=== PATIENT | female | born 1935 | race Caucasian/White ===

== ENCOUNTER 2017-03-05 17:00 | Inpatient (IN) | payer OTHER ==
[~2017-03-05] VITALS: Ht 175.3 cm; Wt 65.8 kg
--- NOTE | ~2017-03-05 | DS ---
Discharge Summary [facility] [address] [place]. [address] NAME: CESAR WHALEN : 31 STATUS : DIS IN PAT#: [id number] AGE: 81 ADM/REG DATE : 03/05/17 MR#: [id number] REPORT SERV DATE: 03/11/17 DICTATED BY: TANNER GUERRA DATE: 03/10/17 REPORT STATUS : Draft TRANSCRIBED BY: MODL DATE: 03/10/17 ADMISSION DATE: 03/05/2017 DISCHARGE DATE: 03/10/2017 DISCHARGE DIAGNOSES: Include, 1. Acute pulmonary embolus. 2. Hypothyroidism, most recent TSH 27.600. 3. Type 2 myocardial infarction with troponin elevations. 4. Hypertension. 5. Acute kidney injury, resolved. 6. History of dementia and cerebrovascular accident. 7. Multiple scrapes, bruises on the left side, present on admission from a fall prior to admission. 8. Recent subdural hematoma secondary to that fall as well. DISCHARGE MEDICATIONS: As follows. Synthroid 125 mcg daily; Tylenol 650 mg every four hours p.r.n.; Xarelto 15 mg twice a day for 21 days, then 20 mg daily for a total of three months; then start aspirin 81 mg daily afterwards and then Lipitor 20 mg at hour of sleep. HISTORY OF PRESENT ILLNESS: An 81-year-old female who presented to [facility] with complaints of shortness of breath and hypoxia. Please see initial H and P of Dr. Peterson Garsia, as the patient is admitted to the Hospitalist Service for further evaluation and treatment. She was started on anticoagulation therapy. Lab work was followed closely. PROCEDURES AND IMAGING DURING THIS ADMISSION: Included, initial CT scan of the brain showing no acute intracranial hemorrhage or other acute intracranial pathology, moderate advanced diffuse cerebral involutional changes, deep white matter chronic microvascular ischemic changes, and old superior right basal ganglia infarct seen extending at the barrett radiata and a very subtle right pontine old lacunar infarct. CTA of the chest showing obstructive pulmonary emboli in the right main descending pulmonary artery, lobar and segmental sized pulmonary arteries, and nonobstructing smaller pulmonary emboli bilateral upper lobes and left pulmonary lobe, atelectasis left lung base, and 50% insufficiency fracture T12 vertebrae. An echocardiogram showing an ejection fraction of 50% to 55%, mild concentric LVH and mild diastolic dysfunction, mild left atrial enlargement. HOSPITAL COURSE: The patient was initially been started on anticoagulation with a heparin drip and required oxygen therapy. This was able to be weaned down slowly, and eventually, the patient was able to come off the oxygen. Discussions with the patient's family on numerous occasions of taking a more palliative approach with overall care were had, and Dr. Bender, [facility], was consulted and did meet with the family and helped in assistance with DNR at this hospitalization and beyond and also the possibility of consulting hospice in the future to decrease the chance of rehospitalizations. The patient was transitioned from heparin drip to Lovenox subcu. Her IV fluids were weaned down. She Discharge Summary [facility] [id number] [facility] [place]. [address] NAME: CESAR WHALEN : 31 STATUS : DIS IN PAT#: [id number] AGE: 81 ADM/REG DATE : 03/05/17 MR#: [id number] REPORT SERV DATE: 03/11/17 DICTATED BY: TANNER GUERRA DATE: 03/10/17 REPORT STATUS : Draft TRANSCRIBED BY: GWENDOLYN DATE: 03/10/17 had a bedside swallow evaluation that did not show any signs of aspiration. The patient was able to eat and drink well. Her TSH on check did come back significantly elevated at 27.600, so her Synthroid dosage has been increased, and she will need to have her TSH rechecked in approximately four to six weeks. For an anticoagulation, she was transitioned to Xarelto and will begin that for the next three months. It was determined that she would return to [facility] for rehab and likely transitioned to long-term care with consideration for consulting hospice in the future. The patient to also continue a C-collar when out of bed and more than 30 degrees for the next 8 to 10 weeks as well. The patient and family were in agreement with this plan going forward. Questions were answered at bedside. Please note greater than 30 minutes was spent on this discharge for family meetings, medication teaching, and further disposition. Collaborative physician is Dr. Tanner Guerra. NESTOR/ASHTYNL Sean Morel, SQL DATABASE PROGRAMMER Tanner Guerra MD / [id number] CC: MD Lonny Hidalgo M.D.
--- NOTE | ~2017-03-05 | HP ---
History And Physical [facility] [address] [place]. [address] NAME: CESAR WHALEN : 31 STATUS : ADM IN [facility]#: [id number] AGE: 81 ADM/REG DATE : 03/05/17 MR#: [id number] REPORT SERV DATE: 03/06/17 DICTATED BY: PETERSON MENDOSA DATE: 03/06/17 REPORT STATUS : Draft TRANSCRIBED BY: MODL DATE: 03/06/17 DATE OF ADMISSION: 03/05/2017 CHIEF COMPLAINT/HISTORY OF PRESENT ILLNESS: This is an 81-year-old female who has a history of recent subdural hematoma secondary to a fall, which occurred on 02/28/2017, history of DVT in November 2014, hypothyroidism, and dementia, who presents to the emergency room at [facility] with the above-mentioned complaint. History is obtained from the patient and reviewing data available on the [employer] system. According to available data, Ms Whalen had a fall on , 02/28/2017, and sustained a subdural hematoma, a cervical fracture, and was then taken to another local hospital, where she was treated as an inpatient and then discharged to [facility] for rehabilitation. Today, she started having shortness of breath and oxygen saturations were low, so the patient was sent to the emergency room here at [facility] for evaluation. In the emergency room, a CTA of her chest showed bilateral pulmonary embolism and a CT of the brain did not show any evidence of the subdural hematoma she had a few days ago. Hospitalist Service is asked to admit her for further evaluation and treatment. At the time of my evaluation, she denied any chest pain or palpitations. She had no orthopnea. She had no cough, hemoptysis, night sweats, or weight loss. She denied any fevers, chills. She did not have any nausea, vomiting, diarrhea. No history of recent hematemesis, hematochezia, or hematuria. No other history of recent travel or exposures other than those mentioned above. 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 She also has history of dementia. SOCIAL HISTORY: She does not smoke, drink, or use recreational drugs. FAMILY HISTORY: Noncontributory. MEDICATIONS: At home were reviewed by me in the chart today and reordered by me. REVIEW OF SYSTEMS: As in history of present illness. All other systems were reviewed in detail and are quite unremarkable. PHYSICAL EXAMINATION: GENERAL: This is a pleasant 81-year-old, not in any acute distress. HEENT: Her head is atraumatic, normocephalic. She is alert, awake, oriented to time, place, and person. Her pupils are equal, reacting to light and accommodating. External ocular muscles are intact. Membranes are moist and pink. Sclerae are nonicteric. NECK: Supple with no jugular venous distention, lymphadenopathy, or thyromegaly. History And Physical [address] [address] NAME: CESAR WHALEN : 31 STATUS : ADM IN [facility]#: [id number] AGE: 81 ADM/REG DATE : 03/05/17 MR#: [id number] REPORT SERV DATE: 03/06/17 DICTATED BY: PETERSON MENDOSA DATE: 03/06/17 REPORT STATUS : Draft TRANSCRIBED BY: GWENDOLYN DATE: 03/06/17 LUNGS: Clear to auscultation with no wheezes, rubs, or crackles. HEART: Heart sounds were regular with no murmurs, rubs, or gallops. ABDOMEN: Soft and nontender. Bowel sounds are present. EXTREMITIES: Showed no cyanosis, clubbing, or edema. NEURO: Grossly intact. No focal sensory or motor deficits. Higher functions appeared intact. Her neck is in a neck brace after her recent fracture. VITAL SIGNS: Her vital signs today showed a temperature of 97.9, pulse 86, and respirations of 16 a minute. Blood pressure was 117/63 upon arrival. Her oxygen saturations were 89% breathing 2 L of oxygen via nasal cannula when she first arrived. LABORATORY DATA: Reviewed on the [employer] system showed a pH of 7.41, pCO2 was 34, PaO2 of 57, and bicarb was 21.4. Her CMP showed a sodium of 140, potassium 4.1, chloride 106, and CO2 of 27, BUN was 28 with a creatinine of 1.12, which is up from her baseline and blood glucose was 133. Her alkaline phosphatase was 156. ALT/AST were 64 and 94 respectively. Troponin was elevated at 2.14 today. CBC revealed an elevated white blood cell count of 19,400, normal hemoglobin, hematocrit, and platelet count. Urinalysis was grossly unremarkable today. IMAGING DATA: Films of the CTA of her chest and CT scan of the brain were reviewed by me on the PACS today and interpreted by me. The CTA of the chest showed obstructing pulmonary emboli in the right main descending pulmonary artery, lobar and segmental sites pulmonary arteries, and nonobstructing smaller pulmonary emboli bilateral upper lobes and left lower lobe. Please see the Radiology report for details. Films of the CT scan of her brain did not show any acute intracranial pathology. The previously seen subdural hematoma has apparently resolved. Films of the chest x-ray did not reveal any acute lobar consolidations or effusions. The lung berry were emphysematous. IMPRESSION: 1. Shortness of breath. 2. Acute bilateral pulmonary emboli. 3. Recent subdural hematoma secondary to a fall on 02/28/2017. 4. History of deep venous thrombosis. 5. Hypothyroidism. 6. Dementia. PLAN: We will admit Ms Whalen to the Hospitalist Service with cardiac telemetry for close monitoring. There was a discussion about whether we can start anticoagulation in a patient who has had a recent subdural hematoma. In reviewing literature online, we found that it was okay to go ahead and start anticoagulation with intravenous heparin, especially with massive clot burden and risk. We, however, called the Neurosurgery Service at [place] and asked for their advice. We were advised to go ahead and start her on a heparin infusion right away. It is also encouraging to note that her previously-seen subdural hematoma has probably resolved. We will go ahead and start her on heparin and follow pulmonary embolism/DVT protocol. We will also obtain cultures and start her on IV antibiotics at this time and place her on bronchodilator treatments and supplemental oxygen therapy. Her elevated troponin may be secondary to her acute pulmonary embolism. We will, however, follow her cardiac enzymes as well. We will also check her TSH and continue thyroid History And Physical [address] [address] NAME: CESAR WHALEN : 31 STATUS : ADM IN [facility]#: [id number] AGE: 81 ADM/REG DATE : 03/05/17 MR#: [id number] REPORT SERV DATE: 03/06/17 DICTATED BY: PETERSON MENDOSA DATE: 03/06/17 REPORT STATUS : Draft TRANSCRIBED BY: GWENDOLYN DATE: 03/06/17 replacement therapy. We will continue all other home medications and treatments at this time as well. I have discussed this extensively with the patient's family who were at bedside, questions were answered, and they are agreeable to the above recommendations. I also addressed her code situation with the patient's family, and according to the patient's family including her sister, she had been a DNR. I will go ahead and sign her DNR form and place it in the chart. Hospitalist Service will be following her during her stay here. /GWENDOLYN Peterson [place]osa M.D. / [id number] CC: Charissa Suggs M.D.
[~2017-03-05 17:00] MED LIST: ADVIL PO; ALEVE220 MG PO; AZO-TABS95 MG PO; METHOC750B PO; NORCO1 TA1 PO; SYN125 PO
[2017-03-05 18:03] LABS: BE (BASE EXCESS) -2.4 MEQ/L (0 +/- 2.5); CARBOXYHEMOGLOBIN 1.4 % (0-3); DEVICE NC; HCO3 (ACTUAL BICARBONATE) 21.4 MEQ/L (23-27); HEMOBLOGIN CONTENT 14.9 G/DL (12-16); INSTRUMENT SERIAL # 8087; METHEMOGLOBIN 0.3 % (0-3); O2 CONTENT 18.3 VOL% (18-24); PCO2 (CO2 TENSION) 34 MMHG (35-45); PO2 (O2 TENSION) 57 MMHG (79-93); SAMPLE Arterial; pH 7.41 (7.37-7.43)
[2017-03-05 20:03] LABS: BASOPHILS 0.1 %; BASOPHILS ABSOLUTE 0.02 10/3/uL (0.0-0.16); EOSINOPHILS 0.1 %; EOSINOPHILS ABSOLUTE 0.01 10/3/uL (0.0-0.53); ER CBC TAT 0 Hrs 05 Mins; HEMATOCRIT 45.7 % (36.0-48.0); HEMOGLOBIN 14.8 g/dL (12.0-16.0); IMMATURE GRANULOCYTES 2.5 %; IMMATURE GRANULOCYTES ABSOLUTE 0.49 10/3/uL (0.0-0.11); LYMPHOCYTES 6.3 %; LYMPHOCYTES ABSOLUTE 1.22 10/3/uL (0.67-4.30); MANUAL DIFF NO %; MEAN CORPUS HGB CONC 32.4 g/dL (32.0-36.0); MEAN CORPUSCULAR HEMOGLOB 27.8 pg (26.0-34.0); MEAN CORPUSCULAR VOLUME 85.7 fL (80-100); MEAN PLATELET VOLUME 9.8 fL (9.2-13.0); MONOCYTES 3.8 %; MONOCYTES ABSOLUTE 0.73 10/3/uL (0.21-1.20); NEUTROPHILS 87.2 %; NEUTROPHILS ABSOLUTE 16.96 10/3/uL (2.02-8.40); PLATELET COUNT 154 10/3/uL (150-400); RBC DISTRIBUTION WIDTH 14.7 % (12.0-16.0); RED CELL COUNT 5.33 10/6/uL (4.0-5.6); WHITE BLOOD CELLS 19.4 10/3/uL (4.5-10.5)
[2017-03-05 20:22] LABS: ALBUMIN 3.2 G/DL (3.5-5.0); CHLORIDE, SERUM 106 MMOL/L (96-112); CO2 (CARBON DIOXIDE) 27 MMOL/L (24-34); CREATININE 1.12 MG/DL (0.55-1.02); GFR AFRICAN AMERICAN 53 ML/MIN (>=60); GFR NON AFRICAN AMERICAN 45 ML/MIN (>=60); POTASSIUM, SERUM 4.1 MMOL/L (3.5-5.3); SGOT(AST) 94 U/L (5-40); SGPT(ALT) 64 U/L (5-65); SODIUM, SERUM 140 MMOL/L (135-148); TOTAL BILIRUBIN 0.6 MG/DL (0-1.2); TOTAL PROTEIN 7.2 G/DL (6.0-8.5)
[2017-03-05 20:23] LABS: A/G RATIO 0.8 (0.7-1.9); ALKALINE PHOSPHATASE 156 U/L (45-117); BUN (BLOOD UREA NITROGEN) 28 MG/DL (6-23); GLUCOSE, SERUM 133 MG/DL (60-99)
[2017-03-05 20:24] LABS: TROPONIN I 2.14 NG/ML (<0.05)
[2017-03-05] MEDS ORDERED: SYN112 PO (21:55)
[2017-03-06 00:03] LABS: ASCORBIC ACID (UR NOT ORDER) NEG (NEG); BILIRUBIN, URINE NEGATIVE (NEG); ER URINALYSIS TAT 0 Hrs 00 Mins; KETONE, URINE NEGATIVE (NEG); LEUKOCYTE ESTERASE(NOT OR NEG (NEG); WBC (NOT ORDERED) (RFLEX) 0 (0-5)
[2017-03-06 00:05] LABS: NITRITE (URINE) NEG (NEG)
[2017-03-06 07:33] LABS: HEMOGLOBIN 13.2 g/dL (12.0-16.0); MEAN CORPUS HGB CONC 32.8 g/dL (32.0-36.0); MEAN CORPUSCULAR HEMOGLOB 27.8 pg (26.0-34.0); MEAN CORPUSCULAR VOLUME 84.8 fL (80-100); MEAN PLATELET VOLUME 9.9 fL (9.2-13.0); PLATELET COUNT 154 10/3/uL (150-400); RBC DISTRIBUTION WIDTH 14.7 % (12.0-16.0); RED CELL COUNT 4.75 10/6/uL (4.0-5.6); WHITE BLOOD CELLS 12.8 10/3/uL (4.5-10.5)
[2017-03-06 07:34] LABS: BUN (BLOOD UREA NITROGEN) 26 MG/DL (6-23); CALCIUM, SERUM 8.5 MG/DL (8.5-10.4); CHLORIDE, SERUM 110 MMOL/L (96-112); CO2 (CARBON DIOXIDE) 23 MMOL/L (24-34); GFR AFRICAN AMERICAN 93 ML/MIN (>=60); GFR NON AFRICAN AMERICAN 80 ML/MIN (>=60); GLUCOSE, SERUM 89 MG/DL (60-99); PHOSPHORUS, SERUM 3.2 MG/DL (2.5-4.5); POTASSIUM, SERUM 3.8 MMOL/L (3.5-5.3); SODIUM, SERUM 144 MMOL/L (135-148); TROPONIN I 2.51 NG/ML (<0.05)
[2017-03-06 07:35] LABS: HEMATOCRIT 40.3 % (36.0-48.0)
[2017-03-06 07:36] LABS: MANUAL DIFF YES %
[2017-03-06 08:53] LABS: BAND NEUTROPHILS 4 %; LYMPHOCYTES 12 %; LYMPHOCYTES ABSOLUTE (CALC) 1.54 10/3/uL (0.67-4.30); MONOCYTES 6 %; MONOCYTES ABSOLUTE (CALC) 0.77 10/3/uL (0.21-1.20); SEGMENTED NEUTROPHIL (0) 78 %; TOTAL NUCLEATED CELLS 100
[2017-03-06 08:54] LABS: PLATELET ESTIMATE ADQ (ADEQUATE); RBC MORPHOLOGY NORM (NORMAL); TOXIC GRANULATION SLT
[2017-03-07 09:11] LABS: BASOPHILS 0.2 %; BASOPHILS ABSOLUTE 0.02 10/3/uL (0.0-0.16); EOSINOPHILS 0.9 %; HEMATOCRIT 38.5 % (36.0-48.0); HEMOGLOBIN 12.7 g/dL (12.0-16.0); IMMATURE GRANULOCYTES 1.3 %; IMMATURE GRANULOCYTES ABSOLUTE 0.14 10/3/uL (0.0-0.11); LYMPHOCYTES 8.9 %; LYMPHOCYTES ABSOLUTE 0.95 10/3/uL (0.67-4.30); MANUAL DIFF NO %; MEAN CORPUSCULAR HEMOGLOB 27.9 pg (26.0-34.0); MEAN CORPUSCULAR VOLUME 84.6 fL (80-100); MEAN PLATELET VOLUME 9.9 fL (9.2-13.0); MONOCYTES 7.2 %; MONOCYTES ABSOLUTE 0.77 10/3/uL (0.21-1.20); NEUTROPHILS 81.5 %; NEUTROPHILS ABSOLUTE 8.74 10/3/uL (2.02-8.40); PLATELET COUNT 181 10/3/uL (150-400); RBC DISTRIBUTION WIDTH 14.2 % (12.0-16.0); RED CELL COUNT 4.55 10/6/uL (4.0-5.6); WHITE BLOOD CELLS 10.7 10/3/uL (4.5-10.5)
[2017-03-07 09:26] LABS: A/G RATIO 0.8 (0.7-1.9); ALBUMIN 2.6 G/DL (3.5-5.0); CALCIUM, SERUM 8.1 MG/DL (8.5-10.4); CHLORIDE, SERUM 107 MMOL/L (96-112); CO2 (CARBON DIOXIDE) 23 MMOL/L (24-34); CREATININE 0.43 MG/DL (0.55-1.02); GFR AFRICAN AMERICAN 109 ML/MIN (>=60); GFR NON AFRICAN AMERICAN 94 ML/MIN (>=60); GLOBULIN 3.3 G/DL (2.5-4.1); GLUCOSE, SERUM 81 MG/DL (60-99); POTASSIUM, SERUM 3.5 MMOL/L (3.5-5.3); SGOT(AST) 31 U/L (5-40); SGPT(ALT) 27 U/L (5-65); SODIUM, SERUM 138 MMOL/L (135-148); TOTAL BILIRUBIN 0.8 MG/DL (0-1.2); TOTAL PROTEIN 5.9 G/DL (6.0-8.5)
[2017-03-07 09:28] LABS: ALKALINE PHOSPHATASE 104 U/L (45-117); BUN (BLOOD UREA NITROGEN) 12 MG/DL (6-23)
[2017-03-08 13:44] LABS: BASOPHILS 0.2 %; BASOPHILS ABSOLUTE 0.02 10/3/uL (0.0-0.16); EOSINOPHILS 0.5 %; EOSINOPHILS ABSOLUTE 0.06 10/3/uL (0.0-0.53); HEMATOCRIT 39.2 % (36.0-48.0); HEMOGLOBIN 13.1 g/dL (12.0-16.0); IMMATURE GRANULOCYTES 0.8 %; IMMATURE GRANULOCYTES ABSOLUTE 0.09 10/3/uL (0.0-0.11); LYMPHOCYTES 8.2 %; MEAN CORPUS HGB CONC 33.4 g/dL (32.0-36.0); MEAN CORPUSCULAR HEMOGLOB 27.9 pg (26.0-34.0); MEAN CORPUSCULAR VOLUME 83.6 fL (80-100); MEAN PLATELET VOLUME 9.6 fL (9.2-13.0); MONOCYTES 5.6 %; MONOCYTES ABSOLUTE 0.62 10/3/uL (0.21-1.20); NEUTROPHILS 84.7 %; PLATELET COUNT 187 10/3/uL (150-400); RBC DISTRIBUTION WIDTH 13.8 % (12.0-16.0); RED CELL COUNT 4.69 10/6/uL (4.0-5.6)
[2017-03-08 13:45] LABS: MANUAL DIFF NO %
[2017-03-08 14:05] LABS: BUN (BLOOD UREA NITROGEN) 11 MG/DL (6-23); CALCIUM, SERUM 8.2 MG/DL (8.5-10.4); CHLORIDE, SERUM 105 MMOL/L (96-112); CO2 (CARBON DIOXIDE) 25 MMOL/L (24-34); GFR AFRICAN AMERICAN 104 ML/MIN (>=60); GFR NON AFRICAN AMERICAN 90 ML/MIN (>=60); GLUCOSE, SERUM 76 MG/DL (60-99); POTASSIUM, SERUM 3.4 MMOL/L (3.5-5.3); SODIUM, SERUM 137 MMOL/L (135-148)
== END 2017-03-10 17:25 | DRG 175 ==
LOC: ER 17:00 → 6NO 23:55
PROVIDERS: Hospitalist; Internal Medicine Pulmonary Disease; Nurse Practitioner Family; Student in an Organized Health Care Education/Training Program
DX: I26.99 Other pulmonary embolism without acute cor pulmonale (principal); I21.4 Non-ST elevation (NSTEMI) myocardial infarction; F03.90 Unspecified dementia, unspecified severity, without behavioral disturbance, psychotic disturbance, mood disturbance, and anxiety; I24.8 Other forms of acute ischemic heart disease; M84.48XA Pathological fracture, other site, initial encounter for fracture; E03.9 Hypothyroidism, unspecified; R09.02 Hypoxemia; Z66 Do not resuscitate; Z51.5 Encounter for palliative care; Z86.718 Personal history of other venous thrombosis and embolism; Z86.73 Personal history of transient ischemic attack (TIA), and cerebral infarction without residual deficits; Z91.81 History of falling
CPT/HCPCS: 36600; 70450; 71010; 71275; 80048; 80053; 81001; 82805; 83605; 83735; 83880; 84100; 84443; 84484; 85025; 85730; 87040; 92610-GN; 93005; 93306; 97162-GP; 99285; A9270-GY; J0360; J0692; J3370; J3475; Q9967